=== PATIENT | female | born 1985 | race Caucasian/White ===

== ENCOUNTER 2017-02-25 18:24 | Emergency (ER) | payer OTHER ==
[~2017-02-25] VITALS: Ht 175.3 cm; Wt 73.6 kg
[2017-02-25 19:25] LABS: HEMATOCRIT 24.8 % (34.6-47.8); HEMOGLOBIN 7.1 g/dL (11.7-16.4); WHITE BLOOD COUNT 9.3 x10^3/uL (3.4-10)
[2017-02-25 19:54] LABS: DIFF TOTAL CELLS COUNTED 100 CELL DIFF
[2017-02-25 19:57] LABS: ANISOCYTOSIS 2+; ASPARTATE AMINO TRANSFERASE 313 U/L (15-37); BLOOD UREA NITROGEN 13 mg/dL (7-18); MICROCYTOSIS 2+
[2017-02-25 19:58] LABS: HYPOCHROMIA 2+; OVALOCYTES 1+; POLYCHROMASIA 1+
[2017-02-25 20:00] LABS: VERIFY COUNTS? YES
[2017-02-25 21:15] VITALS: BP 125/83
[2017-02-25] MEDS ORDERED: SULFAMETH./TRIMETHOPRIM DS 800MG/160MG TABLET ONE (21:17)
[2017-02-25] MEDS ORDERED: SULFAMETH./TRIMETHOPRIM DS 800MG/160MG TABLET PO ONE (21:30)
== END 2017-02-25 21:32 | disposition home or self-care (01) ==
LOC: EDBD 18:24 → ED 19:53
DX: N30.00 Acute cystitis without hematuria (principal); F15.10 Other stimulant abuse, uncomplicated; D64.9 Anemia, unspecified; F41.9 Anxiety disorder, unspecified
CPT/HCPCS: 36415; 80053; 81001; 84703; 85025; 87077; 87086; 87186; 93005; 99285

== ENCOUNTER 2017-03-02 17:49 | Emergency (ER) | payer SELFPAY ==
[~2017-03-02] VITALS: Ht 175.3 cm; Wt 74.2 kg
[2017-03-02 17:50] VITALS: BP 132/82
== END 2017-03-02 18:44 | disposition home or self-care (01) ==
LOC: ED 18:30
DX: Z00.8 Encounter for other general examination (principal); Z59.0 Homelessness
CPT/HCPCS: 99281